=== PATIENT | female | born 1995 | race Hispanic/Latino ===

== ENCOUNTER 2024-10-06 23:08 | Emergency (ER) | payer OTHER ==
[~2024-10-06] VITALS: Ht 167.6 cm; Wt 98.9 kg
[2024-10-07 00:09] VITALS: BP 122/86; PULSE 65; RESP 20; TEMP 98.6; O2SAT 100
[2024-10-07] MEDS: HYDROcodone/APAP 5/325 1 TAB TABLET PO ONE (00:18)
--- NOTE | 2024-10-07 00:20 | ERN ---
General Chief Complaint: Hand Problem/Injury Stated Complaint: HAND PAIN Time Seen by MD: 23:11 Time Seen by Midlevel: 23:11 Source: patient History of Present Illness Initial Comments The patient is a 29-year-old female with no significant past medical history presenting to the emergency department with left hand pain following a mechanical ground level fall that occurred two days ago. She noticed swelling to the hand an increased pain so she decided to report to the ER for further evaluation. Denies any head injury or loss of consciousness. Patient states she fell with a handout stress. The majority of her pain is on her 3rd digit of the left hand. Denies any other symptom or concern at this time Past Medical History Past Medical History: Unknown Past Surgical History: Tonsillectomy ROS Dictation CONSTITUTIONAL: Negative except for HPI HEAD/FACE: Negative except for HPI EENT: Negative except for HPI RESPIRATORY: Negative except for HPI GASTROINTESTINAL/ABDOMINAL: Negative except for HPI GENITOURINARY: Negative except for HPI MUSCULOSKELETAL: Negative except for HPI INTEGUMENTARY: Negative except for HPI NEUROLOGICAL/PSYCH: Negative except for HPI HEMATOLOGIC/LYMPHATIC: Negative except for HPI All Systems Negative, Except as noted above. 13 point review of systems assessed and all negative except for above. Physical Exam Physical Exam Dictation PHYSICAL EXAM: GENERAL: alert,, awake oriented x 3 HEENT: EOMI, Sclera non icteric, moist mucosa NECK: Supple, no JVD, trachea midline LUNGS: Clear breath sounds bilaterally. No wheezes HEART: Regular rate and rhythm. Normal S1 and S2, without murmurs ABD: Abdomen soft, nontender. Bowel sounds present EXT: Swelling over the dorsal aspect of the left hand, full range motion, sensation intact, NEURO: Alert and oriented to person, follows commands MDM MDM: Differential diagnosis: Fracture, contusion, dislocation There are no social concerns with this patient. Prescription drug management Prescriptions will include: None Medical management and examination interpretation discussions were had by me with other qualified healthcare professionals as indicated for the patient's care. ED Course Orders Procedure Category Date Status Time Hand 3+Vws Lt RAD 10/06/24 Taken 23:28 Hydrocodone/Apap PHA 10/07/24 Logged 5/325 ([place]askell 5/325mg) 00:00 Current Medications Medications (Trade) Dose Ordered Sig/Taisha Route PRN Reason Start Time Stop Time Status Last Admin Dose Admin Acetaminophen/ Hydrocodone Bitart (NORco 5/325MG) 1 tab ONCE ONCE PO 10/07/24 00:00 10/07/24 00:01 UNV Vital Signs Date Time Temp Pulse Resp B/P (MAP) Pulse Ox O2 Delivery O2 Flow Rate FiO2 10/07/24 00:09 98.6 65 20 122/86 100 Room Air* 0 21 10/06/24 23:11 98.8 77 20 138/68 99 Room Air 0 DX & DISP Disposition: Discharge Departure Impression: Primary Impression: Contusion of left hand Condition: Stable Additional Instructions: The x-ray of your left hand does not show any acute fracture or dislocation. Continue with Tylenol and Motrin as needed for pain. Follow up with your primary care doctor in 2-3 days for repeat evaluation Referrals: GRAYSON ORTIZ COMPLIANCE ATTORNEY (PCP) Time of Disposition: 00:19 I have reviewed the case, and I agree with, Diagnosis and Plan I performed the substantive portion of the visit. I have reviewed and personally made and approve the management plan that is documented in the note by myself or the IRON. I acknowledge for responsibility for the patient's management plan. CASSANDRA PEDRAZA Oct 07, 2024 00:20
--- NOTE | 2024-10-07 08:40 | HMCIMG ---
Exam Type: HAND 3+VWS LT Clinical Information: fall r/o fx Comparison: None Findings: The bone examination is unremarkable. No fractures or dislocations are seen. No radiopaque foreign bodies are noted. Soft tissues are preserved. IMPRESSION: Normal examination.
== END 2024-10-07 00:44 | disposition home or self-care (01) ==
LOC: EDH 23:08
DX: S60.222A Contusion of left hand, initial encounter (principal); Z90.89 Acquired absence of other organs; W18.39XA Other fall on same level, initial encounter; Y93.89 Activity, other specified; Y92.89 Other specified places as the place of occurrence of the external cause; Y99.8 Other external cause status
CPT/HCPCS: 73130; 99284

== ENCOUNTER → 2025-01-14 | Outpatient (CLI) | payer OTHER ==
[2025-01-14 11:14] LABS: BASOPHILS # (AUTO) 0.01 K/uL (0.00-0.20); BASOPHILS % (AUTO) 0.2 % (0.0-5.0); EOSINOPHILS # (AUTO) 0.31 K/uL (0.00-0.70); EOSINOPHILS % (AUTO) 6.3 % (0.0-8.0); IMMATURE GRANULOCYTE ABSOLUTE 0.01 K/uL (0-1); LYMPHOCYTES # (AUTO) 1.3 K/uL (1.0-4.8); LYMPHOCYTES % (AUTO) 25.7 % (21.0-51.0); MEAN CORPUSCULAR HEMOGLOBIN 25.2 pg (27.0-33.0); MEAN CORPUSCULAR HGB CONC 31.8 g/dL (32.0-36.0); MEAN CORPUSCULAR VOLUME 79.4 fL (79-99); MONOCYTES # (AUTO) 0.3 K/uL (0.1-1.0); MONOCYTES % (AUTO) 6.5 % (3.0-13.0); NEUTROPHILS % (AUTO) 61.1 % (40.0-77.0); PLATELET COUNT (AUTO) 174 K/uL (130-400); RED BLOOD CELL COUNT(AUTO) 4.28 MIL/uL (4.00-5.50); RED CELL DISTRIBUTION WIDTH 15.7 % (11.0-15.5); WHITE BLOOD COUNT (AUTO) 4.9 K/uL (4.8-10.8)
[2025-01-14 11:22] LABS: HEMOGLOBIN A1C 5.8 % (4.0-6.0)
[2025-01-14 11:42] LABS: ALBUMIN 3.7 g/dL (3.5-5.0); BILIRUBIN,TOTAL 0.2 mg/dL (0.2-1.0); CREATININE 0.5 mg/dL (0.5-1.0); POTASSIUM 4.1 mmol/L (3.5-5.1); TOTAL PROTEIN, SERUM 7.3 g/dL (6.0-8.3)
== END | disposition home or self-care (01) ==
LOC: LAB 10:43
PROVIDERS: ATTEND Nurse Practitioner Adult Health
DX: E11.65 Type 2 diabetes mellitus with hyperglycemia (principal); E78.2 Mixed hyperlipidemia; E55.9 Vitamin D deficiency, unspecified; R53.83 Other fatigue; Z00.00 Encounter for general adult medical examination without abnormal findings; E03.8 Other specified hypothyroidism
CPT/HCPCS: 36415; 80053; 80061; 82306; 83036; 84443; 85025

== ENCOUNTER → 2025-03-25 | Outpatient (CLI) | payer OTHER ==
[~2025-03-25] MED LIST: GADOTERATE MEGLUMINE 10 MMOL/20 ML VIAL IV ONE
--- NOTE | 2025-03-26 08:39 | HMCIMG ---
EXAM: MR Abdomen with and without Intravenous Contrast CLINICAL HISTORY: Abnormal findings on prior imaging of the liver and biliary tract TECHNIQUE: Multisequence, multiplanar magnetic resonance images of the abdomen with and without intravenous contrast. Sagittal and coronal reformatted images submitted for interpretation. CONTRAST: Administered intravenously COMPARISON: CT abdomen and pelvis dated March 16, 2025 FINDINGS: LOWER THORAX: No pleural effusion LIVER: The liver is enlarged measuring 25.6 cm in craniocaudal span Diffuse hepatic steatosis Stable arterial hyperenhancing lesion measuring 0.8 x 1.2 cm in segment (series 901, image 13) Stable enhancing lesion measuring 2 x 2 cm in segment TALISHA concerning for intrahepatic arterioportal shunts (series 901, image 82) GALLBLADDER AND BILE DUCTS: No gallstones No biliary ductal dilatation PANCREAS: The pancreas is unremarkable No pancreatic ductal dilation SPLEEN: The spleen is enlarged measuring 13.8 cm ADRENALS: The adrenal glands are unremarkable KIDNEYS: The kidneys are within normal limits No hydronephrosis or mass STOMACH AND BOWEL: Limited evaluation of the stomach and bowel demonstrates no acute process LYMPH NODES: No lymphadenopathy VASCULATURE: No abdominal aortic aneurysm IMPRESSION: Hepatomegaly with diffuse hepatic steatosis Stable arterial hyperenhancing lesions in segment and segment TALISHA of the liver concerning for intrahepatic arterioportal shunts. Splenomegaly /Luther
== END | disposition home or self-care (01) ==
LOC: RAH 10:37
PROVIDERS: ATTEND Internal Medicine Gastroenterology
DX: K76.0 Fatty (change of) liver, not elsewhere classified (principal); R16.2 Hepatomegaly with splenomegaly, not elsewhere classified; R16.0 Hepatomegaly, not elsewhere classified; R93.2 Abnormal findings on diagnostic imaging of liver and biliary tract
CPT/HCPCS: 74183; A9575

== ENCOUNTER 2025-04-18 09:31 | Emergency (ER) | payer OTHER ==
[~2025-04-18] VITALS: Ht 162.6 cm; Wt 88.5 kg
[2025-04-18] MEDS: FAMOTIDINE 20MG VIAL IV ONE (10:15)
[2025-04-18] MEDS ORDERED: DIPH25CA85 PO (12:06)
[2025-04-18] MEDS ORDERED: EPIN0.3P19 IM (12:06)
--- NOTE | 2025-04-18 12:07 | ERN ---
ED Note History of Present Illness Stated Complaint: RASH Chief Complaint: Allergic Reaction Time Seen by MD: 09:41 Dictation: 30-year-old female with allergic reaction diffuse hives all over back and legs no shortness a breath or nausea vomiting or diarrhea Allergies: Coded Allergies: albuterol (Unverified Allergy, Severe, RASH , 10/07/24) Past Medical History Past Medical History: Asthma Surgical History: Tonsillectomy, BTL Review of System Dictation Constitutional: Negative for fever,chills, and weight loss Eyes: Negative for injury, pain,redness, and discharge ENT: Negative for injury,pain or swelling Cardiovascular: Negative for chest pain, palpitations, and edema Respiratory: Negative for shortness of breath, cough, and wheezing, Abdomen/GI: Negative for abdominal pain, nausea, vomiting, diarrhea, and constipation Back: Negative for injury and pain : Negative for injury, bleeding and discharge MS/Extremity: Negative for injury and deformity Skin: Per HPI Neuro: Negative for headache, weakness, numbness, tingling, and seizure Psych: Negative for suicide ideation, homicidal ideation, and hallucinations Initial Vital Sign VS Vital Signs Date Time Temp Pulse Resp B/P (MAP) Pulse Ox O2 Delivery O2 Flow Rate FiO2 04/18/25 09:31 98.1 99 16 137/79 99 Room Air Physical Exam Dictation General: awake, alert, NAD Head/Face: Normocephalic, atraumatic Eyes: PERRL, EOMI, vision at baseline ENT: oral cavity clear, TMs clear, no signs of infection Neck: Trachea midline, supple, no nuchal rigidity Cardiovascular: RRR, normal S1/S2, No MRGs, no JVD Respiratory: CTAB, no respiratory distress, No rales or wheezes Abdomen: Soft, non-tender, non-distended, normal bowel sounds, no guarding or rebound. Skin: Warm, dry, normal turgor, diffuse hives MS/Extremity: Pulses equal, no cyanosis, neurovascular intact, FROM Neuro: COAx4, GCS 15, strength 5/5, CN 2-12 intact, normal cerebellar exam, normal gait, Psych: Normal behavior, mood, and affect normal ED Course ED Course Orders Procedure Category Date Status Time Methylprednisolone PHA 04/18/25 Complete Succ 125mg (Solu-Medr 10:00 Famotidine 20mg Vial PHA 04/18/25 Complete (Pepcid 20mg Vial) 10:00 Diphenhydramine Hcl PHA 04/18/25 Complete (Benadryl Inj) 10:00 Current Medications Medications (Trade) Dose Ordered Sig/Taisha Route PRN Reason Start Time Stop Time Status Last Admin Dose Admin Diphenhydramine HCl (BENAdryl INJ) 25 mg ONCE ONCE IV 04/18/25 10:00 04/18/25 10:01 DC 04/18/25 10:15 Famotidine (Pepcid 20mg Vial) 20 mg ONCE ONCE IV 04/18/25 10:00 04/18/25 10:01 DC 04/18/25 10:15 Methylprednisolone Sodium Succinate (Solu-medROL 125MG) 125 mg ONCE ONCE IVP 04/18/25 10:00 04/18/25 10:01 DC 04/18/25 10:15 Vital Signs Date Time Temp Pulse Resp B/P (MAP) Pulse Ox O2 Delivery O2 Flow Rate FiO2 04/18/25 09:31 98.1 99 16 137/79 99 Room Air Medical Decision Making MDM MDM: Differential diagnosis: Rationale: Tests considered and ordered secondary to shared decision making include: Previous outside records reviewed: Old ER visits. Risk of complication and/or morbidity or mortality of patient management: None Medications-Per medication reconciliation Need for hospitalization: Patient does not meet criteria for hospitalization. Need for emergency major/minor surgery: No There are no social concerns with this patient. Prescription drug management Prescriptions will include symptomatic care Patient's prior external medical records from other ER visits were reviewed by me as indicated. Prior testing and results from previous visits were reviewed. Prior tests were taken into account with medical decision making and resource utilization, independent historian/historians were used to obtain complete medical history. I independently interpreted the test that were performed, results were reviewed by me and considered findings on radiology if ordered. Medical management and examination interpretation discussions were had by me with other qualified healthcare professionals as indicated for the patient's care. Acute allergic reaction no signs of anaphylaxis stable for discharge prescriptions given DX & DISP Disposition: Discharge Departure Impression: Primary Impression: Acute allergic reaction Additional Impression: Hives Condition: Stable Scripts Epinephrine (Epinephrine) 0.3 Mg/0.3 Ml Auto.injct 1 SYR IM ONCE for 1 Day, #0.3 ML 0 Refills Prov: IMAN NIEVES MD 04/18/25 Diphenhydramine HCl (Benadryl) 25 Mg Capsule 1 CAP PO HS for 30 Days, #30 CAP 0 Refills Prov: IMAN NIEEVS MD 04/18/25 Referrals: GRAYSON ORTIZ SLIP TENDER (PCP) IMAN NIEVES MD Apr 18, 2025 12:07
[2025-04-18 12:08] VITALS: BP 131/76; PULSE 88; RESP 16; TEMP 98.1; O2SAT 99
== END 2025-04-18 12:21 | disposition home or self-care (01) ==
LOC: EDH 09:31
DX: T78.40XA Allergy, unspecified, initial encounter (principal); L50.9 Urticaria, unspecified; J45.909 Unspecified asthma, uncomplicated; Z90.89 Acquired absence of other organs; Z98.51 Tubal ligation status; X58.XXXA Exposure to other specified factors, initial encounter
CPT/HCPCS: 99284; 96374; 96375; J2919; J1200; J3490